=== PATIENT | male | born 1975 | race Hispanic/Latino ===

== ENCOUNTER 2016-12-21 23:35 | Emergency (ER) | payer SELFPAY ==
[~2016-12-21] VITALS: Ht 154.9 cm; Wt 71.4 kg
[2016-12-21 23:38] VITALS: BP 144/85; PULSE 99; RESP 16; O2SAT 98
== END 2016-12-22 01:10 | disposition left against medical advice (07) ==
LOC: SED 23:35
DX: Z53.21 Procedure and treatment not carried out due to patient leaving prior to being seen by health care provider (principal)